=== PATIENT | female | born 1940 | race Caucasian/White ===

== ENCOUNTER 2019-08-24 13:22 | Observation (INO) ==
[2019-08-24 14:15] LABS: Basophils % 0.4 %; Eosinophils # 0.1 K/mcL (0.0-0.6); Hematocrit 22.9 % (35.3-44.9); Hemoglobin 7.2 g/dL (11.5-15.4); Immature Granulocytes % 0.6 % (0-4); Lymphocytes # 0.5 K/mcL (0.6-4.6); Mean Corpuscular HGB Conc 31.4 g/dL (31.6-35.5); Mean Corpuscular Hemoglobin 31.3 pg (28.0-33.3); Mean Corpuscular Volume 99.6 fL (83.0-100.0); Mean Platelet Volume 12.6 fL (9.4-12.4); Monocytes # 0.6 K/mcL (0.0-1.3); Monocytes % 12.7 %; Neutrophils # 3.4 K/mcL (1.6-8.9); Red Cell Distribution Width 16.1 % (11.5-14.5); Segmented Neutrophils % 72.3 %; White Blood Count 4.7 K/mcL (4.3-11.1)
[2019-08-24 14:16] LABS: Platelet Count 56 K/mcL (140-400)
[2019-08-24] MEDS ORDERED: 0.9 % Sodium Chloride 500 ML IVC ONE (14:16)
[2019-08-24 14:27] LABS: Activated Partial Thrombo Time 28.1 Seconds (26.0-36.0); INR 1.5; Prothrombin Time 17.2 Seconds (9.4-12.1)
[2019-08-24 14:29] LABS: Calcium 8.5 mg/dL (8.6-10.3); Potassium 5.2 mEq/L (3.5-5.1)
[2019-08-24 14:30] LABS: Albumin 2.6 g/dL (3.5-5.7); Albumin/Globulin Ratio 0.7 (1.1-2.2); Bilirubin,Direct 0.3 mg/dL (0.0-0.2); Bilirubin,Indirect 0.7 mg/dL (0.0-1.0); Globulin 3.8 g/dL (2.4-3.5); Total Protein 6.4 g/dL (6.4-8.9)
[2019-08-24] MEDS ORDERED: Naloxone 0.4 MG/ML INJ IVP PRN (16:53)
[2019-08-24] MEDS ORDERED: Ondansetron 4 MG/2 ML VIAL IVP PRN (16:53)
[2019-08-24] MEDS ORDERED: Baclofen 10 MG TABLET PO PRN (17:04)
[2019-08-24] MEDS ORDERED: 0.9 % Sodium Chloride 250 ML IVC SCH (17:15)
[2019-08-24] MEDS: Lactulose Oral Soln 20 GM/30 ML UDC PO SCH (20:51)
[2019-08-24] MEDS ORDERED: Insulin LISPRO 300 UNITS/3 ML VIAL SQ SCH (21:00)
[2019-08-24] MEDS ORDERED: 0.9 % Sodium Chloride 250 ML ONE (21:39)
[2019-08-25 06:49] LABS: Basophils % 0.3 %; Eosinophils # 0.2 K/mcL (0.0-0.6); Eosinophils % 3.8 %; Hematocrit 26.7 % (35.3-44.9); Hemoglobin 8.6 g/dL (11.5-15.4); Immature Granulocytes % 0.5 % (0-4); Lymphocytes # 0.5 K/mcL (0.6-4.6); Lymphocytes % 12.6 %; Mean Corpuscular HGB Conc 32.2 g/dL (31.6-35.5); Mean Corpuscular Hemoglobin 31.2 pg (28.0-33.3); Mean Corpuscular Volume 96.7 fL (83.0-100.0); Mean Platelet Volume 11.9 fL (9.4-12.4); Monocytes # 0.5 K/mcL (0.0-1.3); Monocytes % 13.3 %; Neutrophils # 2.8 K/mcL (1.6-8.9); Red Blood Count 2.76 M/mcL (3.82-4.97); Red Cell Distribution Width 16.6 % (11.5-14.5); Segmented Neutrophils % 69.5 %
[2019-08-25 06:52] VITALS: BP 107/68
[2019-08-25 07:22] LABS: Platelet Count 46 K/mcL (140-400)
[2019-08-25 07:35] LABS: Albumin 2.5 g/dL (3.5-5.7); Albumin/Globulin Ratio 0.7 (1.1-2.2); Bilirubin,Total 1.8 mg/dL (0.3-1.0); Calcium 8.2 mg/dL (8.6-10.3); Globulin 3.6 g/dL (2.4-3.5); Potassium 5.1 mEq/L (3.5-5.1); Total Protein 6.1 g/dL (6.4-8.9)
[2019-08-25] MEDS: Insulin LISPRO 300 UNITS/3 ML VIAL SQ SCH ×2 (08:22→12:13)
[2019-08-25] MEDS: Lactulose Oral Soln 20 GM/30 ML UDC PO SCH ×2 (08:24→12:13)
[2019-08-25] MEDS ORDERED: Folic Acid 1 MG TABLET PO SCH (09:00)
[2019-08-25] MEDS ORDERED: Loratadine 10 MG TABLET PO SCH (09:00)
[2019-08-25] MEDS ORDERED: Cholecalciferol (D-3) 1,000 UNIT (25MCG) TABLET PO SCH (09:00)
[2019-08-25] MEDS ORDERED: Spironolactone 25 MG TABLET PO SCH (09:00)
[2019-08-25] MEDS ORDERED: Furosemide 40 MG TABLET PO SCH (09:00)
[2019-08-25] MEDS ORDERED: lisinopriL 5 MG TABLET PO SCH (09:00)
== END 2019-08-25 14:39 ==
LOC: INPPIK 13:22 → EMEROOPIK 13:22 → INPPIK 16:42
PROVIDERS: ADMIT Family Medicine; ATTEND Family Medicine